=== PATIENT | female | born 1955 | race Caucasian/White ===

== ENCOUNTER 2017-10-02 08:47 | Emergency (ER) | END 2017-10-02 10:36 | disposition home or self-care (01) ==

== ENCOUNTER 2018-12-31 06:29 | Day surgery (SDC) | payer MEDICARE, OTHER ==
[~2018-12-31] VITALS: Ht 147.3 cm; Wt 86.0 kg
[2018-12-31] VITALS (12 sets, daily range): BP systolic 110–140; BP diastolic 58–73; PULSE 63–77; RESP 14–18; Ht 147.3 cm; Wt 86.0 kg
[~2018-12-31 06:29] MED LIST: ACET500C5 PO; CEPH-443 PO
[2018-12-31] MEDS ORDERED: CEFAZOLIN 2 GM/50 ML (PMX) 50 ML IVPB ONE (07:30)
[2018-12-31] MEDS ORDERED: ACETAMINOPHEN 500 MG TAB PO ONE (07:30)
[2018-12-31] MEDS ORDERED: SOD CHLORIDE 0.9% 1,000 ML IV SCH (07:30)
[2018-12-31] MEDS ORDERED: LISI10TA2 PO (07:44)
[2018-12-31] MEDS ORDERED: HYDR25TA6 PO (07:45)
--- NOTE | 2018-12-31 09:17 | PREAC ---
Date/Time of Note Date/Time of Note DATE: 12/31/18 TIME: 09:15 Anesthesia Eval and Record Evaluation Time Pre-Procedure Interview DATE: 12/31/18 TIME: 09:15 Age 63 Sex female NPO: 8 hrs Preoperative diagnosis R ankle cyst Planned procedure R ankle cyst rearrangement subcutaneous tissue Past Medical History Past Medical History: Includes Cardio: HTN GI: Obesity Surgery & Anesthesia Issues No known issue Meds Anticoagulation: No Beta Chacha within 24 hr: No Reason Beta Chacha not given: Pt. not on B-Chacha Reported Medications Hydrochlorothiazide* (Hydrochlorothiazide*) 25 Mg Tab, 25 MG PO DAILY, #30 TAB 12/31/18 Lisinopril* (Lisinopril*) 10 Mg Tablet, 10 MG PO DAILY, #30 TAB 12/31/18 Discontinued Scripts Acetaminophen* (Tylophen*) 500 Mg Capsule, 1 CAP PO Q6H PRN for PAIN AND OR ELEVATED TEMP, #20 CAP Prov:PASILABAN,KLAR F 10/02/17 Cephalexin* (Keflex*) 500 Mg Capsule, 500 MG PO QID for 5 Days, CAP Prov:PASILABAN,KLAR F 10/02/17 Current Medications Sodium Chloride 1,000 ml @ 75 mls/hr [id number] IV Last administered on 12/31/18at 08:18; Admin Dose 75 MLS/HR; Start 12/31/18 at 07:30 Meds reviewed: Yes Allergies Coded Allergies: No Known Allergy (Unverified , 12/31/18) Allergies Reviewed: Yes Labs/Studies Labs Reviewed: Reviewed by anesthesiologist Result Diagram: 12/31/18 0811 12/31/18 0811 Laboratory Tests 12/31/18 08:11 test: N/A Studies: ECG (nsr, nml) Pre-procedure Exam Last vitals Vital Signs Date Temp Pulse Resp B/P (MAP) Pulse Ox O2 O2 Flow FiO2 Time Delivery Rate 12/31/18 97.3 08:19 12/31/18 63 16 140/73 94 08:01 (95) Airway: Adequate mouth opening, Adequate thyromental dist Mallampati: Mallampati II Teeth: Abnormal (dentures (upper) removed) Lung: Normal Heart: Normal ASA Physical Status ASA physical status: 2 Emergency: None Planned Anesthetic General/MAC: MAC Pre-operative Attestations Prior to commencing anesthesia and surgery, the patient was re-evaluated, there was verification of: *The patient's identity *The results of appropriate recent lab work and preoperative vital signs *The above evaluation not changing prior to induction *Anesthetic plan, risk benefits, alternative and complications discussed with patient/family; questions answered; patient/family understands, accepts and wishes to proceed. CARYN VELASQUEZ Dec 31, 2018 09:17
[2018-12-31] MEDS ORDERED: LABETALOL HCL 20MG INJ IV PRN (09:30)
[2018-12-31] MEDS ORDERED: DIPHENHYDRAMINE 50 MG INJ IV PRN (09:30)
[2018-12-31] MEDS ORDERED: FENTAnyl 50 MCG/ML VIAL IV PRN ×2 (09:30)
[2018-12-31] MEDS ORDERED: ONDANSETRON 4 MG INJ IV PRN (09:30)
[2018-12-31] MEDS ORDERED: morphine 2 MG INJ IV PRN ×2 (09:30)
[2018-12-31] MEDS ORDERED: ALBUTEROL 0.083% (NEB) 2.5 MG/3 ML AMP HHN PRN (09:30)
[2018-12-31] MEDS ORDERED: MEPERIDINE 25 MG INJ IV PRN (09:30)
[2018-12-31] MEDS ORDERED: OXYCODONE/ACETAMINOPHEN (5/325) TAB PO PRN ×2 (09:30)
[2018-12-31] MEDS ORDERED: HYDROmorphONE 1 MG/5 ML IV SYRINGE IV PRN ×3 (09:30)
[2018-12-31] MEDS ORDERED: BUPIVACAINE 0.5%/EPI (SDV) 30 ML INJ ONE (09:32)
[2018-12-31] MEDS ORDERED: LIDOCAINE 1% (MPF) 30 ML INJ ONE (09:32)
[2018-12-31] MEDS ORDERED: MIDAZOLAM 1 MG/ML 2 ML INJ ONE (09:40)
[2018-12-31] MEDS ORDERED: FENTAnyl 50 MCG/ML VIAL ONE (09:40)
[2018-12-31] MEDS ORDERED: BUPIVACAINE 0.5%/EPI (SDV) 30 ML INJ INJ ONE (09:45)
[2018-12-31] MEDS ORDERED: LIDOCAINE 1% (MPF) 30 ML INJ INJ ONE (09:45)
--- NOTE | 2018-12-31 11:09 | OPR ---
Date/Time of Note Date/Time of Note DATE: 12/31/18 TIME: 11:01 Operative Report Preoperative Diagnosis Right ankle cyst Postoperative Diagnosis R ankle ganglion cyst (lateral ankle) Operation/Procedure Performed Excision of R lateral ankle ganglion cyst Surgeon see signature line Medical Pathology Teacher None Anesthesia Type: MAC Estimated Blood Loss: minimal Transfusion none Specimen Ganglion cyst capsule Grafts/Implants none Complications none Pt Condition Post Procedure: stable Disposition: PACU Indications This patient had a large 1.5 cm cyst along the right ankle just beneath the lateral malleolus has been causing pain and discomfort with movement and activities and was referred to my practice for excision for treatment. After risks and benefits were explained informed consent was obtained. Procedure Description The right foot and ankle was prepped and draped in a sterile manner. The cyst was along the lateral malleolus about 1.5 cm in diameter. 20 mL of a combination of Marcaine quarter percent mixed with epinephrine and 1% plain lidocaine were instilled into the dermis and the tissue was anesthetized all the way down to the bone circumferentially around the lesion. Afterwards a 15 blade was used to make a 3 cm incision of the area of skin overlying the cyst. Once the dermis was incised hemostat clamps were used to circumferentially free the cyst from surrounding tissue. As this was being done the capsule ruptured and gelatinous material came out. This gelatinous material was taken off the field and passed on a specimen for pathology. Afterwards the cyst capsule was identified and it was fully excised. It was communicating with the joint of the ankle and it was excised from the joint. Hemostasis was carried out with electrocautery as needed. The area was irrigated with saline and the wound was then closed using 3 oh mattress nylon sutures. The wound was covered with Band- Aid. All instrument sponge and needle counts were correct at the end of the procedure. Patient was dispositioned to recovery suite in stable condition. JEFFERSON BROWN Dec 31, 2018 11:09
--- NOTE | 2018-12-31 12:06 | PAC ---
Date/Time of Note Date/Time of Note DATE: 12/31/18 TIME: 12:06 Post-Anesthesia Notes Post-Anesthesia Note Last documented vital signs Vital Signs Date Temp Pulse Resp B/P (MAP) Pulse Ox O2 O2 Flow FiO2 Time Delivery Rate 12/31/18 98.0 98 77 70 14 16 127/68 96 97 Room 11:12 102 (87) 145/ Air RA 1 75 Activity: WNL Respiratory function: WNL Cardiovascular function: WNL Mental status: Baseline Pain reasonably controlled: Yes Hydration appropriate: Yes Nausea/Vomiting absent: Yes CARYN VELASQUEZ Dec 31, 2018 12:06
--- NOTE | 2018-12-31 16:35 | RADRPT ---
Vent Rate: 61 bpm RR Interval: 984 msec OH Interval: 181 msec QRS Duration: 84 msec QT Interval: 470 msec QTC Interval: 474 msec P-R-T [place]: 20 - -6 - 42 degrees Sinus rhythm...normal P axis, V-rate 50- 99 Electronically Signed By: Magan Izaguirre
== END 2018-12-31 12:15 | disposition home or self-care (01) ==
LOC: SDS 06:29
PROVIDERS: ATTEND Surgery Surgical Critical Care
DX: M67.471 Ganglion, right ankle and foot (principal)
CPT/HCPCS: 27630; 71045; 80048; 85025; 85610; 85730; 88304; 93005; J2250; J3010

== ENCOUNTER 2019-02-02 09:36 | Emergency (ER) | payer MEDICARE, OTHER ==
[~2019-02-02] VITALS: Ht 154.9 cm; Wt 86.4 kg
[~2019-02-02 09:36] MED LIST changes: -ACET500C5 PO; -CEPH-443 PO; +HYDR25TA6 PO; +LISI10TA2 PO
[2019-02-02 09:58] VITALS: Ht 154.9 cm; Wt 86.4 kg
[2019-02-02 12:02] VITALS: BP 158/73; PULSE 77; RESP 18
--- NOTE | 2019-02-03 10:02 | ERD ---
ER Documentation Chief Complaint Chief Complaint surgery x1,th ago wound re-open draining HPI 63-year-old female presents with complaint of wound to her right lateral ankle had a previous surgery site. Patient states that she recently had surgery in that area and has noticed the wound reopening. She also noticed some discharge. Patient denies any fevers, chills, weakness, numbness. Denies any history of diabetes. ROS All systems reviewed and are negative except as per history of present illness. Medications Home Meds Reported Medications Hydrochlorothiazide* (Hydrochlorothiazide*) 25 Mg Tab, 25 MG PO DAILY, #30 TAB 12/31/18 Lisinopril* (Lisinopril*) 10 Mg Tablet, 10 MG PO DAILY, #30 TAB 12/31/18 Allergies Allergies: Coded Allergies: No Known Allergy (Unverified , 02/02/19) PMhx/Soc Medical and Surgical Hx: pt denies Medical Hx History of Surgery: Yes (TUBAL STERILIZATION) Anesthesia Reaction: No Hx Neurological Disorder: No Hx Respiratory Disorders: No Hx Cardiac Disorders: Yes (HTN) Hx Psychiatric Problems: No Hx Miscellaneous Medical Probl: Yes (CYST RIGHT ANKLE) Hx Alcohol Use: No Hx Substance Use: No Hx Tobacco Use: No Smoking Status: Never smoker FmHx Family History: No diabetes, No coronary disease, No other Physical Exam Vitals Vital Signs Date Temp Pulse Resp B/P (MAP) Pulse Ox O2 O2 Flow FiO2 Time Delivery Rate 02/02/19 98.4 77 18 158/73 97 Room Air 12:02 (101) 02/02/19 98.4 64 18 169/73 97 09:58 (105) Physical Exam Const: No acute distress Head: Atraumatic Eyes: Normal Conjunctiva ENT: Normal External Ears, Nose and Mouth. Neck: Full range of motion. No meningismus. Resp: Clear to auscultation bilaterally Cardio: Regular rate and rhythm, no murmurs Abd: Soft, non tender, non distended. Normal bowel sounds Skin: No petechiae or rashes. Approximately 2 cm full-thickness ulcerated lesion noted to the lateral aspect of the right ankle proximal to the right lateral malleolus. There is no bleeding or discharge noted. There is no surrounding cellulitis or erythema noted. Back: No midline or flank tenderness Ext: No cyanosis, or edema Neur: Awake and alert Psych: Normal Mood and Affect Procedures/MDM MDM: Case was discussed with supervising physician Dr. Shaw advised to consult wound care nurse. Nurse consulted with the patient, applied new dressings, and educated patient on wound care techniques. Dr. Shaw stated the patient was fit for discharge without any further medications or treatments needed. At this time I have low suspicion for sepsis, necrotizing fasciitis, gangrene, osteomyelitis, or any other emergent condition. At this time, patient is stable for discharge and outpatient management. I have instructed the patient to follow-up with his/her primary care physician in 1-2 days. I have discussed with the patient the possibility of needing to see a specialist for further workup and imaging studies if symptoms persist. I have instructed the patient to promptly return to the ER for any new or worsening symptoms including but not limited to increased pain, fever, nausea, vomiting, weakness or LOC. The patient and/or family expressed understanding of and agreement with this plan. All questions were answered. Home care instructions were provided. Communication with patient both during the exam and instructions for discharge were performed with using a gut dropper . Patient gave verbal confirmation to the practitioner, through the gut dropper, that they understood everythign that was being said to them. DISCLAIMER: Inadvertent spelling and grammatical errors are likely due to EHR/dictation software use and do not reflect on the overall quality of patient care. Also, please note that the electronic time recorded on this note does not necessarily reflect the actual time of the patient encounter. Departure Diagnosis: Primary Impression: Skin ulcer Condition: Stable Patient Instructions: Wound Care, Caring for Your Wound Referrals: JEFFERSON BROWN Additional Instructions: Please follow-up with Dr. Brown the surgeon within 24 hours. His contact info is in your packet..Return to this facility if you are not improving as expected. BEBO ESQUIVEL Feb 03, 2019 10:01
== END 2019-02-02 12:03 | disposition home or self-care (01) ==
LOC: FTE 09:36
DX: L97.319 Non-pressure chronic ulcer of right ankle with unspecified severity (principal); I10 Essential (primary) hypertension
CPT/HCPCS: 99282